=== PATIENT | female | born 1995 | race Caucasian/White ===

== ENCOUNTER → 2021-07-27 | Outpatient (REF) | payer OTHER | LOC: M LAB REF 15:50 | PROVIDERS: ATTEND Nurse Practitioner Family | DX: R30.0 Dysuria (principal) ==

== ENCOUNTER 2021-08-20 18:14 | Emergency (ER) | payer OTHER, SELFPAY ==
[~2021-08-20] VITALS: Ht 170.2 cm; Wt 72.7 kg
[2021-08-20 18:15] VITALS: BP 124/71
[2021-08-20] MEDS ORDERED: EMOQTAB (18:23)
== END 2021-08-20 21:46 | disposition left against medical advice (07) ==
LOC: M ED 18:14
DX: Z53.21 Procedure and treatment not carried out due to patient leaving prior to being seen by health care provider (principal)